=== PATIENT | female | born 1955 | race Caucasian/White ===

== ENCOUNTER 2017-09-05 08:50 | Inpatient (IN) | payer BC ==
[~2017-09-05] VITALS: Ht 162.6 cm; Wt 94.1 kg
[2017-09-05] MEDS ORDERED: HYDROmorphone 2 MG/ML, 1ML IV ONE (09:00)
[2017-09-05] MEDS ORDERED: ONDANSETRON 2MG/ML, 2ML IVPush ONE (09:00)
[2017-09-05] MEDS ORDERED: PLEASE ENTER HEIGHT AND WEIGHT MC SCH (09:30)
[2017-09-05] MEDS ORDERED: PROPOFOL 10 MG/ML, 20ML IVPush ONE (10:00)
[2017-09-05] MEDS ORDERED: PROPOFOL 10 MG/ML, 20ML ONE ×2 (10:21→17:10)
[2017-09-05 12:51] LABS: BASOPHILS # (AUTO) 0.03 x10^3/uL (0-0.1); BASOPHILS % (AUTO) 1 % (0-1); EOSINOPHILS # (AUTO) 0.17 x10^3/uL (0-0.4); EOSINOPHILS % (AUTO) 3 % (1-7); LYMPHOCYTES # (AUTO) 1.76 x10^3/uL (1-3.4); LYMPHOCYTES % (AUTO) 26 % (22-44); MD NO; MEAN CORPUSCULAR HEMOGLOBIN 28.9 pg (27.0-34.8); MEAN CORPUSCULAR HGB CONC 32.7 g/dL (32.4-35.8); MEAN CORPUSCULAR VOLUME 88.4 fL (80-100); MEAN PLATELET VOLUME 8.5 fL (7.4-10.4); MONOCYTES # (AUTO) 0.52 x10^3/uL (0.2-0.8); MONOCYTES % (AUTO) 8 % (2-9); NEUTROPHILS # (AUTO) 4.23 x10^3/uL (1.8-6.8); NEUTROPHILS % (AUTO) 63 % (42-75); PLATELET COUNT 273 x10^3/uL (130-400); RED BLOOD COUNT 4.19 x10^6/uL (3.82-5.3); RED CELL DISTRIBUTION WIDTH 14.7 % (9.6-15.2)
[2017-09-05 12:55] LABS: INTERNATIONAL NORMALIZED RATIO 0.98 (0.93-1.1); PROTHROMBIN TIME 10.2 Seconds (9.6-11.5)
[2017-09-05 12:59] LABS: ALBUMIN 3.7 g/dL (3.4-5.0); ANION GAP 8 mmol/L (5-15); CALCIUM 10.4 mg/dL (8.5-10.1); CHLORIDE 110 mmol/L (98-107); CREATININE 1.47 mg/dL (0.55-1.02)
[2017-09-05] MEDS ORDERED: METO50TA82 PO (13:08)
[2017-09-05] MEDS ORDERED: LOSA50TA2 PO (13:08)
[2017-09-05] MEDS ORDERED: ATOR40TA78 PO (13:08)
[2017-09-05] MEDS ORDERED: VERA40TA PO (13:08)
[2017-09-05] MEDS ORDERED: LANS30CA60 PO (13:09)
[2017-09-05] MEDS: SODIUM CHLORIDE 0.9% 1,000 ML IV SCH (13:51)
[2017-09-05] MEDS ORDERED: hydrALAzine 20 MG/ML, 1ML IVPush PRN (14:00)
[2017-09-05] MEDS ORDERED: morphine SULFATE 10 MG/ML, 1ML IVPush PRN (14:00)
[2017-09-05] MEDS ORDERED: ONDANSETRON 2MG/ML, 2ML IVPush PRN (14:00)
[2017-09-05 14:15] VITALS: BP 168/71
[2017-09-05] MEDS ORDERED: METO-264 PO (14:38)
[2017-09-05 14:39] LABS: FREE T4 (FREE THYROXINE) 0.99 ng/dL (0.76-1.46); THYROID STIMULATING HORMONE 2.93 mIU/L (0.358-3.740)
[2017-09-05] MEDS ORDERED: MIDAZOLAM 1 MG/ML, 2ML ONE (16:38)
[2017-09-05] MEDS ORDERED: FENTANYL PF 100 MCG/2ML ONE (16:38)
[2017-09-05] MEDS ORDERED: ONDANSETRON 2MG/ML, 2ML ONE (17:10)
[2017-09-05] MEDS ORDERED: DEXAMETHASONE 4 MG/ML, 1ML ONE (17:10)
[2017-09-05] MEDS ORDERED: ROCURONIUM 10MG/ML,5ML ONE (17:10)
[2017-09-05] MEDS ORDERED: SUCCINYLCHOLINE 20 MG/ML, 10ML ONE (17:10)
[2017-09-05] MEDS ORDERED: PROMETHAZINE 12.5 MG SUPP PR PRN (18:30)
[2017-09-05] MEDS ORDERED: LABETALOL 5MG/ML, 20ML IV PRN (18:30)
[2017-09-05] MEDS ORDERED: FENTANYL PF 100 MCG/2ML IV PRN (18:30)
[2017-09-05] MEDS ORDERED: ALBUTEROL SULFATE 2.5 MG/3 ML NPPB PRN (18:30)
[2017-09-05] MEDS ORDERED: HYDROmorphone 1 MG/ML, 1ML IV PRN (18:30)
[2017-09-05] MEDS ORDERED: MEPERIDINE/PF 25MG/0.5ML IVPush PRN (18:30)
[2017-09-05] MEDS ORDERED: ACETAMINOPHEN 325 MG TABLET PO PRN (18:30)
[2017-09-05] MEDS ORDERED: LORazepam 2 MG/ML, 1ML IVPush PRN (18:30)
[2017-09-05] MEDS ORDERED: hydrALAzine 20 MG/ML, 1ML IV PRN (18:30)
[2017-09-05] MEDS ORDERED: OXYcodone 5 MG/5 ML ORAL.SOL UDC PO PRN ×2 (18:30→20:00)
[2017-09-05] MEDS ORDERED: HYDROcodone/APAP 5/325 TABLET PO PRN (20:00)
[2017-09-05] MEDS: VERAPAMIL 40MG TABLET PO SCH (21:19)
[2017-09-05] MEDS: ATORVASTATIN 40 MG TABLET PO SCH (21:19)
[2017-09-05 23:30] VITALS: BP 147/88
[2017-09-05 23:37] VITALS: BP 147/88
[2017-09-06 01:09] VITALS: BP 159/89
[2017-09-06] MEDS: CEFAZOLIN PMX 2GM/50ML 50 ML IVPB SCH ×2 (01:35→08:35)
[2017-09-06 05:25] LABS: ANION GAP 9 mmol/L (5-15); BASOPHILS # (AUTO) 0.01 x10^3/uL (0-0.1); BASOPHILS % (AUTO) 0 % (0-1); CALCIUM 9.4 mg/dL (8.5-10.1); CHLORIDE 110 mmol/L (98-107); EOSINOPHILS % (AUTO) 0 % (1-7); LYMPHOCYTES # (AUTO) 0.78 x10^3/uL (1-3.4); LYMPHOCYTES % (AUTO) 8 % (22-44); MD NO; MEAN CORPUSCULAR HEMOGLOBIN 29.2 pg (27.0-34.8); MEAN CORPUSCULAR HGB CONC 33.3 g/dL (32.4-35.8); MEAN CORPUSCULAR VOLUME 87.5 fL (80-100); MEAN PLATELET VOLUME 8.2 fL (7.4-10.4); MONOCYTES # (AUTO) 0.42 x10^3/uL (0.2-0.8); MONOCYTES % (AUTO) 4 % (2-9); NEUTROPHILS # (AUTO) 8.57 x10^3/uL (1.8-6.8); NEUTROPHILS % (AUTO) 88 % (42-75); PLATELET COUNT 219 x10^3/uL (130-400); RED BLOOD COUNT 3.57 x10^6/uL (3.82-5.3); RED CELL DISTRIBUTION WIDTH 14.7 % (9.6-15.2)
[2017-09-06 05:29] LABS: ALANINE AMINOTRANSFERASE 19 U/L (12-78); ALKALINE PHOSPHATASE 107 U/L (45-117); BILIRUBIN,TOTAL 0.6 mg/dL (0.2-1.0); TOTAL PROTEIN 6.4 g/dL (6.4-8.2)
[2017-09-06] MEDS: SODIUM CHLORIDE 0.9% 1,000 ML IV SCH ×2 (05:30→15:53)
[2017-09-06 07:04] VITALS: BP 168/80
[2017-09-06] MEDS: OMEPRAZOLE 20 MG CAPSULE.DR PO SCH (08:35)
[2017-09-06] MEDS: VERAPAMIL 40MG TABLET PO SCH ×2 (08:35→20:41)
[2017-09-06] MEDS: LOSARTAN 50MG TABLET PO SCH (08:36)
[2017-09-06] MEDS: METOPROLOL TARTRATE 50 MG TABLET PO SCH (08:36)
[2017-09-06] MEDS: IBUPROFEN 200 MG TABLET PO PRN ×3 (08:40→21:59)
[2017-09-06 13:57] VITALS: BP 172/73
[2017-09-06 20:16] VITALS: BP 161/69
[2017-09-06] MEDS: ATORVASTATIN 40 MG TABLET PO SCH (20:41)
[2017-09-07 02:06] VITALS: BP 167/73
[2017-09-07] MEDS: SODIUM CHLORIDE 0.9% 1,000 ML IV SCH ×2 (03:30→12:57)
[2017-09-07 05:52] LABS: BASOPHILS # (AUTO) 0.03 x10^3/uL (0-0.1); BASOPHILS % (AUTO) 0 % (0-1); EOSINOPHILS # (AUTO) 0.01 x10^3/uL (0-0.4); EOSINOPHILS % (AUTO) 0 % (1-7); LYMPHOCYTES # (AUTO) 1.99 x10^3/uL (1-3.4); LYMPHOCYTES % (AUTO) 21 % (22-44); MD NO; MEAN CORPUSCULAR HEMOGLOBIN 29.1 pg (27.0-34.8); MEAN CORPUSCULAR HGB CONC 32.8 g/dL (32.4-35.8); MEAN CORPUSCULAR VOLUME 88.5 fL (80-100); MONOCYTES # (AUTO) 0.98 x10^3/uL (0.2-0.8); MONOCYTES % (AUTO) 10 % (2-9); NEUTROPHILS # (AUTO) 6.38 x10^3/uL (1.8-6.8); NEUTROPHILS % (AUTO) 68 % (42-75); PLATELET COUNT 215 x10^3/uL (130-400); RED BLOOD COUNT 3.39 x10^6/uL (3.82-5.3); RED CELL DISTRIBUTION WIDTH 14.7 % (9.6-15.2)
[2017-09-07 06:00] LABS: ALBUMIN 2.9 g/dL (3.4-5.0); ANION GAP 7 mmol/L (5-15); CALCIUM 9.5 mg/dL (8.5-10.1); CHLORIDE 110 mmol/L (98-107)
[2017-09-07 06:02] LABS: CREATININE 1.09 mg/dL (0.55-1.02)
[2017-09-07 07:18] VITALS: BP 177/78
[2017-09-07] MEDS: LOSARTAN 50MG TABLET PO SCH (07:35)
[2017-09-07] MEDS: VERAPAMIL 40MG TABLET PO SCH (07:36)
[2017-09-07] MEDS: METOPROLOL TARTRATE 50 MG TABLET PO SCH (07:36)
[2017-09-07] MEDS: OMEPRAZOLE 20 MG CAPSULE.DR PO SCH (07:38)
[2017-09-07 12:39] VITALS: BP 165/75
[2017-09-07] MEDS: IBUPROFEN 200 MG TABLET PO PRN (14:38)
[2017-09-07] MEDS ORDERED: IBUP-1484 PO (15:04)
[2017-09-07] MEDS ORDERED: OXYC5CAP2 PO (16:58)
== END 2017-09-07 17:10 | disposition home health service (06) | DRG 493 ==
LOC: ED 11:42 → EDIP 12:40 → 4NOR 13:28 → DCLOUNGE 09-07 16:37
PROVIDERS: ADMIT Hospitalist; ATTEND Internal Medicine
PROC: 0QSGXZZ Reposition Right Tibia, External Approach (ICD-10-PCS; 2017-09-05)
PROC: 0QSG04Z Reposition Right Tibia with Internal Fixation Device, Open Approach (ICD-10-PCS; principal; 2017-09-05 16:30)
DX: S82.851A Displaced trimalleolar fracture of right lower leg, initial encounter for closed fracture (principal); N17.9 Acute kidney failure, unspecified; W00.0XXA Fall on same level due to ice and snow, initial encounter; E78.5 Hyperlipidemia, unspecified; Y93.01 Activity, walking, marching and hiking; Y92.89 Other specified places as the place of occurrence of the external cause; Y99.8 Other external cause status; I10 Essential (primary) hypertension; Z88.1 Allergy status to other antibiotic agents; Z88.8 Allergy status to other drugs, medicaments and biological substances; K21.9 Gastro-esophageal reflux disease without esophagitis; Z82.49 Family history of ischemic heart disease and other diseases of the circulatory system; Z80.0 Family history of malignant neoplasm of digestive organs; E83.52 Hypercalcemia
CPT/HCPCS: 27818; 36415; 71045; 76001; 80048; 80053; 82040; 83735; 84100; 84439; 84443; 85025; 85610; 93005; 99152; 99285; C1713; J0690; J1100; J2250; J2405; J2704; J3010; J0330; J7030